=== PATIENT | male | born 1955 | race Caucasian/White ===

== ENCOUNTER → 2016-06-28 | Outpatient (CLI) | payer OTHER ==
[~2016-06-28] MED LIST: AZOR 10-20 MG1 EACH; BLOOD PRESSURE MED; COZAAR; CYCLOBENZAPRINE5 GM; DESYREL150 M1 PO; FLEXERIL10 MG PO; FLOMAX0.4 M1; FLOMAX0.4 M1 DOB; INDOMETHACIN50 MG PO; KEFLEX500 MG PO; LASIX20 MG PO; LIORESAL10 MG DOB; LOSARTAN-HCTZ1 EAC1 PO; MULTI VITAMIN1 EACH PO; NORVASC2.5 MG PO; PRAVASTATIN SOD40 MG PO; TOPROL XL; TOPROL XL50 MG PO; ZANAFLEX4 M1 PO
--- NOTE | ~2016-06-28 | MR15 ---
[facility] A Service of [facility] RADIOLOGY TEXT RESULTS PATIENT: LANDRY BERGER LOCATION: [facility] : 53 UNIT #: [id number] AGE: [address]: Gilberto Lazcano MD SEX: M ORDER DR: [id number] [facility] [address] [place], [place] [address] [id number] MR#: [id number] Acc #: [id number] NAME: LANDRY BERGER : 1955 SEX: M STUDY DATE/TIME: 06/28/2016 15:19 UNIT: [facility] ROOM: STUDY DESCRIPTION: MR Brain W IACS WWo Contrast Attending Physician: Gilberto Lazcano M.D. Referring Physician: Gilberto Lazcano M.D. Ordering Physician: Gilberto Lazcano M.D. Primary Care Physician: Long Wan M.D. MRI CENTER REPORT This report is preliminary unless electronic signature is present. EXAM MRI of the brain and IACs with and without contrast. HISTORY Headaches for the past 24 days. Chronic bilateral hearing loss, right worse than left, which is worsening. Hearing loss is sensory neural. TECHNIQUE Multiplanar imaging of the brain was performed with and without contrast with thin detailed sections through the IACs. 20 mL of MultiHance was used. FINDINGS On diffusion weighted images, there is no evidence of abnormal restricted diffusion to suggest a recent infarct. The routine brain images show mild to moderate chronic ischemic changes in the periventricular deep white matter bilaterally. There is no evidence of mass lesion, hemorrhage or edema. There is no evidence of acoustic neuroma or other cerebellopontine angle mass. The membranous labyrinth has a normal appearance on both sides. After contrast administration, no abnormal enhancement is seen. IMPRESSION Moderate chronic ischemic changes around the ventricles. Otherwise, negative MRI of the brain and IACs. Dictated by... Sarthak Fierro M.D. THIS IS AN ELECTRONICALLY VERIFIED REPORT Sarthak Fierro M.D. at 06/29/2016 6:47 PM RLF/crystal STS. [facility] A Service of [facility] RADIOLOGY TEXT RESULTS PATIENT: LANDRY BERGER [facility] UNIT #: [id number] AGE: [address]: Gilberto Lazcano MD SEX: M ORDER DR: TD: 06/29/2016 18:18 JOB #: [id number] MRI CENTER REPORT Page 1 of 1 COPY
[2016-06-28 15:20] LABS: POC - CREATININE 1.72 mg/dL (0.64-1.27)
== END | disposition home or self-care (01) ==
LOC: CMRI 14:34
PROVIDERS: Specialist
DX: H91.91 Unspecified hearing loss, right ear (principal)
CPT/HCPCS: 70553; 82565; A9577

== ENCOUNTER → 2016-07-27 | Outpatient (CLI) | payer OTHER ==
[2016-07-27 13:32] LABS: BASOPHIL# 0.1 X10e3 (0-0.3); BASOPHIL% 1.3 % (0-2.5); EOSINOPHIL# 0.2 X10e3 (0-0.7); EOSINOPHIL% 3.1 % (0.0-7.0); HEMATOCRIT 40.3 % (38.0-50.0); HEMOGLOBIN 13.9 gm/dL (13.0-16.0); LYMPHOCYTE# 1.7 X10e3 (1.0-3.5); LYMPHOCYTE% 26.4 % (17.0-45.0); MEAN CELL VOLUME 97.5 FL (83-96); MEAN CORPUSCULAR HEMOGLOBIN 33.7 PG (28-34); MEAN CORPUSCULAR HGB CONC 34.5 g/dL (30-36); MEAN PLATELET VOLUME 7.8 FL (6.5-11.5); MONOCYTE# 0.5 X10e3 (0-1.0); MONOCYTE% 8.2 % (3.0-12.0); NEUTROPHIL# 3.9 X10e3 (1.5-7.1); PLATELET COUNT 258 X10e3 (140-420); RED BLOOD COUNT 4.13 X10e (3.90-5.60); RED CELL DISTRIBUTION WIDTH 12.6 % (11.0-15.5); WHITE BLOOD COUNT 6.3 X10e3 (4.0-10.5)
[2016-07-27 14:07] LABS: URINE APPEARANCE CLEAR; URINE BILIRUBIN NEG (NEG); URINE BLOOD TRACE-INTACT (NEG); URINE COLOR YELLOW; URINE GLUCOSE NEG (NORM); URINE KETONE NEG (NEG); URINE LEUKOCYTE ESTERASE NEG (NEG); URINE NITRATE NEG (NEG); URINE PROTEIN NEG (NEG); URINE SPECIFIC GRAVITY <=1.005 (1.003-1.035); URINE UROBILINOGEN 0.2 MG/DL (NORM)
[2016-07-27 14:08] LABS: MICRO INDICATED? YES
[2016-07-27 14:09] LABS: BUN/CREATININE RATIO 9.44; CALCIUM SERUM 9.1 mg/dL (8.4-10.2); CREATININE SERUM 1.8 mg/dL (0.6-1.4); GLOM FILT RATE Estimated 39.5 mL/min (>60); PHOSPHOROUS 3.6 mg/dL (2.5-4.6); POTASSIUM 4.3 mmol/L (3.5-5.1)
[2016-07-27 14:26] LABS: DIFF IND NO
[2016-07-27 14:31] LABS: URINE BACTERIA NEG (NEG); URINE RBC 0-2 /[HPF] (0-2); URINE WBC NEG /[HPF] (0-5)
[2016-07-30 07:43] LABS: CALCIUM (PTHINTACT) 9.6 mg/dL (8.6-10.3)
== END | disposition home or self-care (01) ==
LOC: SLAB 13:05
PROVIDERS: Internal Medicine Nephrology
DX: N18.3 Chronic kidney disease, stage 3 (moderate) (principal); E55.9 Vitamin D deficiency, unspecified
CPT/HCPCS: 36415; 80048; 81003; 82306; 82310; 83970; 84100; 85025

== ENCOUNTER 2016-07-31 00:15 | Inpatient (IN) | payer OTHER ==
--- NOTE | ~2016-07-31 | CT71 ---
[facility] A Service [facility] RADIOLOGY TEXT RESULTS PATIENT: LANDRY BERGER LOCATION: [facility] 341-01 : 53 UNIT #: [id number] AGE: [address]: Merlin Chanel MD SEX: M ORDER DR: [id number] [place] [id number] I MR#: [id number] Acc #: [id number] NAME: LANDRY BERGER. : 1955 SEX: M STUDY DATE/TIME: 07/31/2016 1:42 UNIT: SEDOF ROOM: [facility] STUDY DESCRIPTION: CT Head Wo Contrast Attending Physician: Marian Chen M.D. Ordering Physician: Alberto Barcenas M.D. Primary Care Physician: Long Wan M.D. MEDICAL IMAGING REPORT This report is preliminary unless electronic signature is present. EXAM CT scan of the head without contrast. HISTORY Dizziness, lightheadedness, and hypotension tonight after taking medications. TECHNIQUE Axial noncontrast images were obtained from the skull base to the vertex. This CT exam was performed with one or more of the following radiation dose reduction techniques: automatic exposure control, adjustment of mA and/or kV according to patient size, and iterative reconstruction. FINDINGS Ventricular size and configuration are normal. There is no evidence of acute infarct or hemorrhage. There are no extraaxial fluid collections. No mass lesion or mass effect is seen. There are no skull fractures. IMPRESSION Normal noncontrast head CT. Dictated by... León Pabon M.D. THIS IS AN ELECTRONICALLY VERIFIED REPORT León Pabon M.D. at 07/31/2016 12:38 PM TEX/kya [facility] A Service [facility] RADIOLOGY TEXT RESULTS PATIENT: LANDRY BERGER LOCATION: [facility] 341-01 : 53 UNIT #: [id number] AGE: [address]: Merlin Chanel MD SEX: M ORDER DR: TD: 07/31/2016 09:49 JOB #: [id number] MEDICAL IMAGING REPORT Page 1 of 1
--- NOTE | ~2016-07-31 | CR72 ---
[facility] [place] Service of [facility] RADIOLOGY TEXT RESULTS PATIENT: LANDRY BERGER LOCATION: [facility] 341- : 53 UNIT #: [id number] AGE: [address]: Merlin Chanel MD SEX: M ORDER DR: [id number] [place] [id number] I MR#: [id number] Acc #: [id number] NAME: LANDRY BERGER : 1955 SEX: M STUDY DATE/TIME: 07/31/2016 1:32 UNIT: SEDOF ROOM: [facility] STUDY DESCRIPTION: CR Chest Single View Portable Attending Physician: Marian Chen M.D. Ordering Physician: Alberto Barcenas M.D. Primary Care Physician: Long Wan M.D. MEDICAL IMAGING REPORT This report is preliminary unless electronic signature is present. EXAM Portable chest 07/31/2016 INDICATION Dizziness, lightheaded with hypotension tonight. COMPARISON 08/05/2013. FINDINGS A portable view of the chest was obtained. The heart size and vascularity are normal. The lungs are clear. The bones are normal. IMPRESSION No active disease. Dictated by... León Pabon M.D. THIS IS AN ELECTRONICALLY VERIFIED REPORT León Pabon M.D. at 07/31/2016 12:38 PM TEX/skye TD: 07/31/2016 09:48 JOB #: [id number] MEDICAL IMAGING REPORT Page 1 of 1
--- NOTE | ~2016-07-31 | CO ---
Unit #: [id number] #: [id number] Patient: LANDRY BERGER [id number] [address] [place], [place] [address] [id number] MR#: [id number] NAME: LANDRY BERGER. ROOM: 341 Age: 60 Sex: M Admission Date: 07/31/2016 : 1955 Attending Physician: Merlin Chanel M.D. Primary Care Physician: Long Wan M.D. Consultation Date: 07/31/2016 CONSULTATION REPORT REASON FOR CONSULTATION Hyponatremia and acute on chronic renal failure. Thank you very much for this consultation. HISTORY OF PRESENT ILLNESS The patient is a 60-year-old white male with history of significant alcohol abuse with consumption of 15+ drinks per day as well as CKD stage 3 with baseline creatinine of 1.7, who follows with me in the office. In addition, he has a history of hypertension, GERD, hyperlipidemia and BPH. He presented with worsening confusion, altered mental status, weakness, hypotension, and was found to have severe hyponatremia with acute on chronic renal failure. He was hypotensive upon presentation. His blood pressure has improved with IV fluid resuscitation. He denies drinking as much as his sister states that he is currently drinking. He denies any chest pain or shortness of breath. No nausea, vomiting, or diarrhea. He states he has been eating 2 meals a day. He has no other complaints at the present time. He is somewhat emotionally labile at the current time and he does not want any help with his addiction at this time. PAST MEDICAL HISTORY As per HPI. CURRENT MEDICATIONS Per his med rec are Toprol-XL, Cozaar, cyclobenzaprine, Penny, Flomax, and pravastatin. ALLERGIES To lisinopril. FAMILY HISTORY Noncontributory. SOCIAL HISTORY Heavy alcohol abuse. SURGICAL HISTORY Per chart. REVIEW OF SYSTEMS 12-system review of systems is negative except as per HPI. PHYSICAL EXAMINATION VITAL SIGNS: Blood pressure is 90s to 120s over 50s to 80s, heart rate Unit #: [id number] #: [id number] Patient: LANDRY BERGER 60s to 70s, respirations 14 to 18, T-max 97.9. GENERAL: He is in no acute distress. He does have some emotional lability. HEAD: Normocephalic, atraumatic. ENT: Pupils equally round and reactive to light. Oropharynx is clear. NECK: Supple. No JVD. LUNGS: Clear to auscultation bilaterally. No wheezes, rhonchi, or crackles. HEART: Regular rate and rhythm. No murmurs, gallops, or rubs. ABDOMEN: Soft and nontender with positive bowel sounds. EXTREMITIES: He has no edema. DIAGNOSTIC STUDIES LABORATORY RESULTS: Sodium 127, potassium 4.0, chloride 94, bicarb 23, BUN 17, creatinine 1.6, glucose 83, calcium 9.0, mag 1.7. White count 7.2, hemoglobin 12.7, platelets 212. Urinalysis negative. IMPRESSION 1. Severe hyponatremia secondary to beer potomania, improving with fluids. 2. Acute kidney injury, prerenal resolved. 3. Chronic kidney disease stage 3 at baseline. 4. Hypotension, improving with IV fluids. 5. Heavy alcohol abuse. PLAN We will continue IV fluids with normal saline along with daily banana bag. We will hold Cozaar and Penny at current time and will need to clarify which blood pressure medications he needs to resume eventually; however, his blood pressure is currently not elevated. He has been started on Librium and is at high risk of DTs. He is currently not interested in any help with his addiction. His CKD does appear to be at baseline today after improvement with IV fluids. We will continue to monitor, avoid nephrotoxins, and have further recommendations as his hospital course progresses. Thank you very much for this consultation. Dictated by... Kareem Fuentes M.D. BAYLEE/seven TD: 08/01/2016 06:32 JOB #: [id number] CONSULTATION REPORT Page 1 of 1 X Kareem Fuentes MD X CONSULTATION REPORT
--- NOTE | ~2016-07-31 | EKG ---
PATIENT: LANDRY BERGER UNIT #: [id number] Ventricular Rate: 62 BPM Atrial Rate: 62 BPM P-R Interval: 138 ms QRS Duration: 84 ms Q-T Interval: 428 ms QTC Calculation(Bezet): 434 ms P [place]: 58 degrees Calculated R [place]: 53 degrees Calculated T [place]: 49 degrees Diagnosis Line: Normal sinus rhythm Diagnosis Line: Nonspecific ST abnormality Diagnosis Line: Abnormal ECG Diagnosis Line: No previous ECGs available Diagnosis Line: Confirmed by VICKI HARRIS MD ([id number]) on Diagnosis Line: 08/09/2016 8:27:25 AM INTERPRETING MD: KIMBERLY MACKENZIE
--- NOTE | ~2016-07-31 | DS ---
Unit #: [id number] #: [id number] Patient: LANDRY BERGER [id number] [facility] [address] [place], [place] [address] [id number] MR#: [id number] NAME: LANDRY BERGER ROOM: 341 Age: 60 Sex: M Admission Date: 07/31/2016 : 1955 Discharge Date: 08/01/2016 Attending Physician: Merlin Chanel M.D. Primary Care Physician: Long Wan M.D. DISCHARGE SUMMARY REASON FOR ADMISSION Hyponatremia, acute renal failure. HISTORY OF PRESENT ILLNESS/HOSPITAL COURSE Please refer to H and P for complete details. Initial laboratory studies at outside hospital revealed a sodium of 121, potassium 2.5, creatinine 2.5. Therefore, patient was transferred to [facility] for further evaluation. While here, he was placed on Librium scheduled as well as Ativan p.r.n. secondary to his severe alcohol abuse. His electrolytes were corrected. Consultation was placed to Dr. Fuentes of nephrology services as he had seen the patient in the past. Routine laboratory studies were ascertained. He was placed on normal saline. This morning, his sodium was 135, his creatinine 1.4. His potassium level is now 4. He appears clinically stable for discharge home. It was noted he was on multiple blood pressure medications while at home but his blood pressure systolic generally remained between the 90s to low 100s and therefore at time of discharge, will give him a prescription for Norvasc 2.5 mg on a daily basis. Flomax will be continued as his home medication as will daily multivitamin. The remainder of his medications will be discontinued as he did not ask nor did he require any further medications while here. He is to follow with Dr. Fuentes of nephrology services in approximately two weeks for routine care. Overall, the long-term prognosis of this patient is poor secondary to his lack of insight into his chronic alcoholism and/or abuse. He drinks approximately four to six beers on a daily basis. He states that he has cut back recently. He used to drink a pint on a daily basis. He was once again counseled on the extensive harmful nature of drinking alcohol chronically. He expressed understanding and agreement. FINAL DISCHARGE DIAGNOSES 1. Hyponatremia, likely secondary to alcohol abuse. 2. Hypokalemia, now resolved. 3. Acute kidney injury on chronic kidney disease, likely stage 3. 4. Severe alcohol abuse. 5. Prior history of hypertension with medication reduction as detailed above. 6. Acute kidney injury on admission. 7. Poor nutritional status, secondary to severe alcohol abuse. DISCHARGE MEDICATIONS Unit #: [id number] #: [id number] Patient: LANDRY BERGER 1. Daily multivitamin. 2. Flomax 0.4 mg p.o. daily. 3. Norvasc 2.5 mg p.o. daily. Dictated by... Rory Montelongo/clari TD: 08/02/2016 09:04 JOB #: [id number] DISCHARGE SUMMARY Page 1 of 1 X Merlin Chanel MD X DISCHARGE SUMMARY
--- NOTE | ~2016-07-31 | HP ---
Unit #: [id number] #: [id number] Patient: LANDRY BERGER [id number] [address] [place], [place] [address] [id number] I MR#: [id number] NAME: LANDRY BERGER. ROOM: 341 Age: 60 Sex: M Admission Date: 07/31/2016 : 1955 Attending Physician: Merlin Chanel M.D. Primary Care Physician: Long Wan M.D. HISTORY AND PHYSICAL REASON FOR ADMISSION Hyponatremia, acute renal failure. HISTORY OF PRESENT ILLNESS The patient is a 60-year-old male transferred from [facility] secondary to abnormal laboratory studies showing a sodium of 121, potassium 2.5, creatinine of 2.5. The patient is an alcoholic. He states in the past he used to drink at least a case a day with a bottle of whiskey, as well. Recently, he has cut back to 4-6 beers on a daily basis. For the past several days he began stumbling around, having dizziness episodes, became lightheaded. He presented to [facility] where laboratory studies were performed, aforementioned abnormalities were noted, and thus, the patient was transferred here for further evaluation. He also tells me he recently was here in the hospital, although I do not have any records to show. I believe he presented to the ER for further evaluation. He underwent an MRI brain with and without contrast, and it did show moderate chronic ischemic changes, but it was otherwise negative. He tells me that he is supposed to be following up with a "brain doctor" to check to make sure he does not have any tumors present in his head. He also tells me that he has a family history of brain tumors, coronary artery disease, thyroid cancer, and he expresses concern in regard to all the above. He himself is not the best historian. He gives a very scattered history. He only tells me that he has two main physicians; one is his family physician, Dr. Wan, as well as his kidney doctor, Dr. Fuentes. The other physicians, as well as his past medical history, he is not entirely sure about. PAST MEDICAL HISTORY Through chart review and discussion, hypertension, BPH, hyperlipidemia, chronic back pain issues, alcohol abuse. PAST SURGICAL HISTORY Back surgery. HOME MEDICATIONS Toprol, Cozaar, Flexeril, Penny, Flomax, pravastatin. ALLERGIES Lisinopril. Unit #: [id number] #: [id number] Patient: LANDRY BERGER FAMILY HISTORY Positive brain tumors, thyroid cancer, coronary artery disease, diabetes. SOCIAL HISTORY Positive alcohol use on a daily basis. Positive tobacco use. Occasional marijuana use. REVIEW OF SYSTEMS Please see HPI. A 12-point review was limited secondary to the patient's poor mental status, as well as difficulty in reviewing systems with him. PHYSICAL EXAMINATION VITAL SIGNS: Temperature 97.9, pulse 65, respiratory rate 14, blood pressure 80/50 at [facility]. Current vitals - Temperature 97.6, heart rate 71, respiratory rate 16, blood pressure 105/71. GENERAL APPEARANCE: The patient is a 60-year-old obese male lying comfortably, no acute distress. HEAD EXAM: Atraumatic, normocephalic. EAR EXAM: Tympanic membranes do not reveal any erythema or injection. NECK: Supple. CVS: S1, S2 without murmur. RESPIRATORY: Coarse breath sounds are noted. Rhonchi are noted. Prolonged expiration noted. GI/ABDOMEN: Distention noted. Nontender. LOWER EXTREMITY EXAM: No evidence of any lower extremity edema. NEUROLOGIC: The patient is alert and oriented x3. PSYCHIATRIC EXAM: Patient demonstrates normal responses; however, he has a bizarre affect and is a very poor historian. DIAGNOSTIC STUDIES INITIAL LABORATORY STUDIES: Hemoglobin 12.7, potassium 2.5, sodium 121, creatinine 2.5. INITIAL IMPRESSION 1. Hyponatremia, likely secondary to alcohol abuse. 2. Alcohol abuse. 3. Urine tox with positive opioids, not prescribed. 4. Acute kidney injury, questionable chronic kidney disease, unclear baseline. 5. Hypotension at outside facility. 6. BPH history. 7. Hyperlipidemia. 8. Hypokalemia. PLAN 1. Admission telemetry floor. 2. Banana bag daily. 3. Replete electrolytes. 4. Renal consultation. 5. Symptoms support. 6. Watch for delirium tremens, initiate Librium. 7. Hold blood pressure medications in light of hypotension. 8. MRI noted from June 28, 2016 performed here, which was negative. 9. Further hospital course to follow. PROGNOSIS Unit #: [id number] #: [id number] Patient: LANDRY BERGER Overall long-term, this patient's prognosis is guarded at best secondary to ongoing alcohol abuse, as well as questionable compliance with medications. Dictated by Rory Montelongo/ted TD: 08/01/2016 07:38 JOB #: [id number] HISTORY AND PHYSICAL Page 1 of 1 X Merlin Chanel MD X HISTORY AND PHYSICAL
[~2016-07-31 00:15] MED LIST changes: -AZOR 10-20 MG1 EACH; -COZAAR; -CYCLOBENZAPRINE5 GM; -FLOMAX0.4 M1; -MULTI VITAMIN1 EACH PO; -NORVASC2.5 MG PO; -PRAVASTATIN SOD40 MG PO; -TOPROL XL
[2016-07-31] MEDS ORDERED: CYCLOBENZAPRINE5 GM (00:39)
[2016-07-31] MEDS ORDERED: TOPROL XL (00:39)
[2016-07-31] MEDS ORDERED: AZOR 10-20 MG1 EACH (00:39)
[2016-07-31] MEDS ORDERED: COZAAR (00:39)
[2016-07-31] MEDS ORDERED: PRAVASTATIN SOD40 MG PO (00:40)
[2016-07-31] MEDS ORDERED: FLOMAX0.4 M1 (00:40)
[2016-07-31 01:30] LABS: BASOPHIL# 0.1 X10e3 (0-0.3); BASOPHIL% 0.7 % (0-2.5); EOSINOPHIL# 0.2 X10e3 (0-0.7); EOSINOPHIL% 2.3 % (0.0-7.0); HEMATOCRIT 36.3 % (38.0-50.0); HEMOGLOBIN 12.7 gm/dL (13.0-16.0); LYMPHOCYTE# 2.1 X10e3 (1.0-3.5); LYMPHOCYTE% 29.3 % (17.0-45.0); MEAN CELL VOLUME 96.7 FL (83-96); MEAN CORPUSCULAR HEMOGLOBIN 33.9 PG (28-34); MEAN CORPUSCULAR HGB CONC 35.1 g/dL (30-36); MEAN PLATELET VOLUME 7.8 FL (6.5-11.5); MONOCYTE# 0.7 X10e3 (0-1.0); MONOCYTE% 9.9 % (3.0-12.0); NEUTROPHIL# 4.1 X10e3 (1.5-7.1); NEUTROPHIL% 57.8 % (40-75); PLATELET COUNT 212 X10e3 (140-420); RED BLOOD COUNT 3.75 X10e (3.90-5.60); RED CELL DISTRIBUTION WIDTH 12.4 % (11.0-15.5); WHITE BLOOD COUNT 7.2 X10e3 (4.0-10.5)
[2016-07-31 01:35] LABS: DIFF IND NO
[2016-07-31 01:43] LABS: BUN/CREATININE RATIO 8.4; CALCIUM SERUM 8.5 mg/dL (8.4-10.2); CREATININE SERUM 2.5 mg/dL (0.6-1.4); GLOM FILT RATE Estimated 26.5 mL/min (>60); POTASSIUM 3.5 mmol/L (3.5-5.1)
[2016-07-31 01:46] LABS: POC - CKMB 5.2 ng/mL (0.0-7.9); POC - TROPONIN <0.05 ng/mL (<=0.05)
[2016-07-31 02:46] LABS: URINE SOURCE CLEAN CATCH
[2016-07-31 02:49] LABS: MICRO INDICATED? NO; URINE APPEARANCE CLEAR; URINE BILIRUBIN NEG (NEG); URINE BLOOD NEG (NEG); URINE COLOR YELLOW; URINE GLUCOSE NEG (NORM); URINE KETONE NEG (NEG); URINE LEUKOCYTE ESTERASE NEG (NEG); URINE NITRATE NEG (NEG); URINE PROTEIN NEG (NEG); URINE SPECIFIC GRAVITY <=1.005 (1.003-1.035); URINE UROBILINOGEN 0.2 MG/DL (NORM)
[2016-07-31 02:59] LABS: AMPHETAMINE NEG (NEG); BARBITURATES NEG (NEG); BENZODIAZEPINES NEG (NEG); COCAINE NEG (NEG); MARIJUANA NEG (NEG); OPIATES POS (NEG); TRICYCLIC ANTIDEPRESSANTS NEG (NEG); U METHADONE NEG (NEG)
[2016-07-31 12:23] LABS: BUN/CREATININE RATIO 10.62; CREATININE SERUM 1.6 mg/dL (0.6-1.4); GLOM FILT RATE Estimated 45.5 mL/min (>60); MAGNESIUM 1.7 mg/dL (1.6-3.0)
[2016-08-01 05:33] LABS: HEMATOCRIT 40.2 % (38.0-50.0); HEMOGLOBIN 13.6 gm/dL (13.0-16.0); MEAN CELL VOLUME 98.5 FL (83-96); MEAN CORPUSCULAR HEMOGLOBIN 33.3 PG (28-34); MEAN CORPUSCULAR HGB CONC 33.8 g/dL (30-36); RED BLOOD COUNT 4.08 X10e (3.90-5.60); RED CELL DISTRIBUTION WIDTH 12.7 % (11.0-15.5); WHITE BLOOD COUNT 6.4 X10e3 (4.0-10.5)
[2016-08-01 06:08] LABS: BUN/CREATININE RATIO 10.71; CALCIUM SERUM 9.1 mg/dL (8.4-10.2); CREATININE SERUM 1.4 mg/dL (0.6-1.4); GLOM FILT RATE Estimated 53.5 mL/min (>60)
[2016-08-01] MEDS ORDERED: MULTI VITAMIN1 EACH PO (14:52)
[2016-08-01] MEDS ORDERED: NORVASC2.5 MG PO (14:52)
== END 2016-08-01 17:56 | disposition home or self-care (01) | DRG 683 ==
LOC: SED 00:15 → SEDOF 02:27 → SED 02:27 → C3A PCU 02:27 → SEDOF 08:03 → C3A PCU 08:03 → SEDOF 10:50 → C3A PCU 08-01 17:56
PROVIDERS: Emergency Medicine; Family Medicine
DX: N17.9 Acute kidney failure, unspecified (principal); E87.1 Hypo-osmolality and hyponatremia; I95.9 Hypotension, unspecified; N18.3 Chronic kidney disease, stage 3 (moderate); F17.210 Nicotine dependence, cigarettes, uncomplicated; F10.20 Alcohol dependence, uncomplicated; N40.0 Benign prostatic hyperplasia without lower urinary tract symptoms; E78.5 Hyperlipidemia, unspecified; E87.6 Hypokalemia; I12.9 Hypertensive chronic kidney disease with stage 1 through stage 4 chronic kidney disease, or unspecified chronic kidney disease; K21.9 Gastro-esophageal reflux disease without esophagitis; Z88.8 Allergy status to other drugs, medicaments and biological substances; Z80.8 Family history of malignant neoplasm of other organs or systems; Z83.3 Family history of diabetes mellitus; Z82.49 Family history of ischemic heart disease and other diseases of the circulatory system
CPT/HCPCS: 36415; 70450; 71010; 80048; 80307; 81003; 82553; 82607; 82947; 83605; 83735; 84443; 84484; 85025; 85027; 87040; 93005; 96360; 99285; G0480; J3411; J3475

== ENCOUNTER → 2016-08-09 | Outpatient (CLI) | payer OTHER ==
[~2016-08-09] MED LIST changes: +AZOR 10-20 MG1 EACH; +COZAAR; +CYCLOBENZAPRINE5 GM; +FLOMAX0.4 M1; +MULTI VITAMIN1 EACH PO; +NORVASC2.5 MG PO; +PRAVASTATIN SOD40 MG PO; +TOPROL XL
[2016-08-09 13:37] LABS: BUN/CREATININE RATIO 6.47; CALCIUM SERUM 8.5 mg/dL (8.4-10.2); CREATININE SERUM 1.7 mg/dL (0.6-1.4); GLOM FILT RATE Estimated 42.3 mL/min (>60)
== END | disposition home or self-care (01) ==
LOC: SLAB 12:50
PROVIDERS: Internal Medicine Nephrology
DX: N18.3 Chronic kidney disease, stage 3 (moderate) (principal)
CPT/HCPCS: 36415; 80048